=== PATIENT | female | born 1950 | race Asian ===

== ENCOUNTER 2020-06-21 12:31 | Inpatient (IN) | payer MEDICAID, SELFPAY ==
[2020-06-21] VITALS (12 sets, daily range): BP systolic 137–233
[~2020-06-21] VITALS: Ht 170.2 cm; Wt 61.7 kg
[2020-06-21] MEDS ORDERED: NITROPRUSSIDE SODIUM 50 MG in D5W 248 ML IV ONE (13:15)
[2020-06-21 13:21] LABS: BASOPHILS % (AUTO) 0.3 % (0.0-2.0); EOSINOPHILS % (AUTO) 0.5 % (0.0-4.0); HEMATOCRIT 35.2 % (36-48); HEMOGLOBIN 11.3 g/dL (12.0-16.0); LYMPHOCYTES # (AUTO) 0.8 K/uL (1.0-5.5); LYMPHOCYTES % (AUTO) 11.4 % (20.5-51.5); MEAN CORPUSCULAR HEMOGLOBIN 32 pg (27-31); MEAN CORPUSCULAR HGB CONC 32 % (32-36); MEAN CORPUSCULAR VOLUME 100 fL (79.0-98.0); MONOCYTES # (AUTO) 0.4 K/uL (0.0-1.0); MONOCYTES % (AUTO) 5.2 % (1.7-9.3); NEUTROPHILS # (AUTO) 5.9 K/uL (1.8-7.7); NEUTROPHILS % (AUTO) 82.6 % (40.0-70.0); PLATELET COUNT (AUTO) 87 K/uL (130-430); RED BLOOD CELL COUNT(AUTO) 3.51 MIL/uL (4.2-6.2); WHITE BLOOD COUNT (AUTO) 7.2 K/uL (4.8-10.8)
[2020-06-21] MEDS ORDERED: NITROPRUSSIDE SODIUM 25 MG/ML VIAL(NIPRIDE) IV ONE (13:30)
[2020-06-21 13:32] LABS: ANION GAP 7 (5-15); CALCIUM 7.6 mg/dL (8.4-11.0); CHLORIDE 103 mmol/L (98-107); GLUCOSE 239 mg/dL (70-99); SODIUM SERUM 138 mmol/L (136-145); UREA NITROGEN, BLOOD 82 mg/dL (8-21)
[2020-06-21 13:36] LABS: POTASSIUM 7.5 mmol/L (3.5-5.1)
[2020-06-21] MEDS ORDERED: INSULIN REGULAR, HUMAN 10 UNITS/0.1 ML INJ IVP ONE (13:45)
[2020-06-21] MEDS ORDERED: DOXYCYCLINE HYCLATE 100 MG in D5W 100 ML IV ONE (13:45)
[2020-06-21] MEDS ORDERED: cefTRIAXone 1 GM VIAL IM ONE (13:45)
[2020-06-21] MEDS ORDERED: DEXTROSE 50% JECT 50 ML DISP.SYRIN IVP ONE (13:45)
[2020-06-21] MEDS ORDERED: CALCIUM GLUCONATE 1 GM in NS 100 ML IV ONE (13:45)
[2020-06-21] MEDS ORDERED: DOXYCYCLINE HYCLATE 100 MG VIAL IV ONE (13:52)
[2020-06-21] MEDS ORDERED: CALCIUM GLUCONATE 1 GM/10 ML VIAL ONE (13:52)
[2020-06-21 13:57] LABS: ANION GAP 6 (5-15); CALCIUM 7.5 mg/dL (8.4-11.0); CHLORIDE 102 mmol/L (98-107); GLUCOSE 225 mg/dL (70-99); SODIUM SERUM 137 mmol/L (136-145); UREA NITROGEN, BLOOD 77 mg/dL (8-21)
[2020-06-21 14:08] LABS: ALANINE AMINOTRANSFERASE 61 U/L (12-78); ALBUMIN 3.6 g/dL (3.4-4.8); ASPARTATE AMINOTRANSFERASE 34 U/L (10-37)
[2020-06-21 14:15] LABS: CREATININE 11.32 mg/dL (0.55-1.30); POTASSIUM 7.6 mmol/L (3.5-5.1)
[2020-06-21 14:22] LABS: TOTAL BILIRUBIN < 0.1 mg/dL (0.0-1.0)
[2020-06-21] MEDS ORDERED: ALBUTEROL SULFATE 0.083% 2.5 MG/3 ML VIAL.NEB INH PRN (14:45)
[2020-06-21] MEDS ORDERED: IPRATROPIUM BROM 0.5 MG/2.5 ML VIAL.NEB (ATROVENT) INH PRN (14:45)
[2020-06-21] MEDS ORDERED: PIPERACILLIN/TAZO 3.375 GM in NS 50 ML IV ONE (14:45)
[2020-06-21 15:11] LABS: BILIRUBIN,URINE NEGATIVE (NEGATIVE); BLOOD, URINE 2+ (NEGATIVE); CLARITY/URINE CLEAR (CLEAR); COLOR,URINE YELLOW (YELLOW); GLUCOSE,URINE 1+ (NEGATIVE); KETONES,URINE NEGATIVE (NEGATIVE); LEUKOCYTE ESTERASE ,URINE NEGATIVE (NEGATIVE); NITRITE, URINE NEGATIVE (NEGATIVE); PROTEIN URINE 2+ (NEGATIVE); UROBILINOGEN,URINE 0.2 (0.2-1.0)
[2020-06-21 15:48] LABS: WBC,URINE 20-50 /HPF (0-3)
[2020-06-21 15:49] LABS: BACTERIA,URINE FEW /HPF (None Seen); MUCUS,URINE None Seen /LPF (None Seen)
[2020-06-21] MEDS ORDERED: PIPERACILLIN/TAZO 3.375/DEX-IS 50 ML IV ONE (18:30)
[2020-06-21] MEDS: ALBUTEROL SULFATE 0.083% 2.5 MG/3 ML VIAL.NEB INH SCH ×2 (19:54→23:45)
[2020-06-21] MEDS: IPRATROPIUM BROM 0.5 MG/2.5 ML VIAL.NEB (ATROVENT) INH SCH ×2 (19:54→23:45)
[2020-06-21] MEDS ORDERED: D5W 1,000 ML IV PRN (21:15)
[2020-06-21] MEDS ORDERED: GLUCOSE (DEXTROSE) ORAL GEL -Adults PO PRN (21:15)
[2020-06-21] MEDS ORDERED: hydrALAZINE HCL 20 MG/ML VIAL ONE (21:26)
[2020-06-21] MEDS ORDERED: hydrALAZINE HCL 20 MG/ML VIAL IVP PRN (21:30)
[2020-06-21] MEDS: DEXTROSE 50% JECT 50 ML DISP.SYRIN IVP PRN (22:25)
[2020-06-21] MEDS: hydrALAZINE HCL 20 MG/ML VIAL IVP PRN (22:25)
[2020-06-22] VITALS (23 sets, daily range): BP systolic 118–209
[2020-06-22] MEDS: PIPERACILLIN/TAZO 2.25G/DEX-IS 50 ML IV SCH ×5 (00:41→23:36)
[2020-06-22] MEDS ORDERED: hydrALAZINE HCL 20 MG/ML VIAL ONE (01:05)
[2020-06-22] MEDS: hydrALAZINE HCL 20 MG/ML VIAL IVP PRN (01:41)
[2020-06-22] MEDS: DEXTROSE 50% JECT 50 ML DISP.SYRIN IVP PRN (02:03)
[2020-06-22 05:19] LABS: HEMATOCRIT 31.9 % (36-48); HEMOGLOBIN 10.8 g/dL (12.0-16.0); MEAN CORPUSCULAR HGB CONC 34 % (32-36); PLATELET COUNT (AUTO) 81 K/uL (130-430)
[2020-06-22 05:25] LABS: BASOPHILS % (AUTO) 0.3 % (0.0-2.0); EOSINOPHILS # (AUTO) 0.1 K/uL (0.0-0.4); EOSINOPHILS % (AUTO) 1.1 % (0.0-4.0); LYMPHOCYTES # (AUTO) 0.7 K/uL (1.0-5.5); LYMPHOCYTES % (AUTO) 10.7 % (20.5-51.5); MEAN CORPUSCULAR HEMOGLOBIN 33 pg (27-31); MEAN CORPUSCULAR VOLUME 97 fL (79.0-98.0); MONOCYTES # (AUTO) 0.5 K/uL (0.0-1.0); MONOCYTES % (AUTO) 7.6 % (1.7-9.3); NEUTROPHILS # (AUTO) 5.2 K/uL (1.8-7.7); NEUTROPHILS % (AUTO) 80.3 % (40.0-70.0); RED BLOOD CELL COUNT(AUTO) 3.28 MIL/uL (4.2-6.2); RED CELL DISTRIBUTION WIDTH 13.8 % (9.0-15.0); WHITE BLOOD COUNT (AUTO) 6.5 K/uL (4.8-10.8)
[2020-06-22 05:40] LABS: ALANINE AMINOTRANSFERASE 41 U/L (12-78); ALBUMIN 3.1 g/dL (3.4-4.8); ANION GAP 9 (5-15); ASPARTATE AMINOTRANSFERASE 26 U/L (10-37); CALCIUM 7.8 mg/dL (8.4-11.0); CHLORIDE 100 mmol/L (98-107); GLUCOSE 109 mg/dL (70-99); POTASSIUM 4.7 mmol/L (3.5-5.1); SODIUM SERUM 140 mmol/L (136-145); TOTAL BILIRUBIN 0.6 mg/dL (0.0-1.0); UREA NITROGEN, BLOOD 39 mg/dL (8-21)
[2020-06-22] MEDS: IPRATROPIUM BROM 0.5 MG/2.5 ML VIAL.NEB (ATROVENT) INH SCH ×3 (07:00→15:00)
[2020-06-22] MEDS: ALBUTEROL SULFATE 0.083% 2.5 MG/3 ML VIAL.NEB INH SCH ×3 (07:00→15:00)
[2020-06-22] MEDS: INSULIN LISPRO SLIDING SCALE 100 UNITS/ML VIAL (humaLOG) SUBCUT PRN (20:53)
[2020-06-23] VITALS (17 sets, daily range): BP systolic 127–189
[2020-06-23] MEDS: PIPERACILLIN/TAZO 2.25G/DEX-IS 50 ML IV SCH ×4 (06:18→23:52)
[2020-06-23] MEDS: ALBUTEROL SULFATE 0.083% 2.5 MG/3 ML VIAL.NEB INH SCH ×3 (07:00→15:00)
[2020-06-23] MEDS: IPRATROPIUM BROM 0.5 MG/2.5 ML VIAL.NEB (ATROVENT) INH SCH ×3 (07:00→15:00)
[2020-06-23] MEDS: INSULIN LISPRO SLIDING SCALE 100 UNITS/ML VIAL (humaLOG) SUBCUT PRN (21:35)
[2020-06-24] VITALS: BP_SYST 134
[2020-06-24] MEDS: PIPERACILLIN/TAZO 2.25G/DEX-IS 50 ML IV SCH ×3 (06:14→17:29)
[2020-06-24] MEDS: ALBUTEROL SULFATE 0.083% 2.5 MG/3 ML VIAL.NEB INH SCH ×4 (07:00→19:32)
[2020-06-24] MEDS: IPRATROPIUM BROM 0.5 MG/2.5 ML VIAL.NEB (ATROVENT) INH SCH ×4 (07:00→19:32)
[2020-06-24 08:23] VITALS: BP_SYST 179
[2020-06-24 10:26] VITALS: BP_SYST 179
[2020-06-24] MEDS: INSULIN LISPRO SLIDING SCALE 100 UNITS/ML VIAL (humaLOG) SUBCUT PRN ×2 (11:34→21:00)
[2020-06-24 15:48] VITALS: BP_SYST 131
[2020-06-24 20:00] VITALS: BP_SYST 145
[2020-06-25] VITALS: BP_SYST 142
[2020-06-25] MEDS: PIPERACILLIN/TAZO 2.25G/DEX-IS 50 ML IV SCH ×3 (00:03→11:22)
[2020-06-25] MEDS: INSULIN LISPRO SLIDING SCALE 100 UNITS/ML VIAL (humaLOG) SUBCUT PRN ×2 (06:22→11:21)
[2020-06-25] MEDS: IPRATROPIUM BROM 0.5 MG/2.5 ML VIAL.NEB (ATROVENT) INH SCH ×3 (07:00→15:00)
[2020-06-25] MEDS: ALBUTEROL SULFATE 0.083% 2.5 MG/3 ML VIAL.NEB INH SCH ×3 (07:00→15:00)
[2020-06-25 07:45] VITALS: BP_SYST 154
[2020-06-25 11:45] VITALS: BP_SYST 154
[2020-06-25 12:00] VITALS: BP_SYST 169
[2020-06-25 14:20] VITALS: BP_SYST 112
[2020-06-25 15:00] VITALS: BP_SYST 122
== END 2020-06-25 15:55 | disposition home or self-care (01) | DRG 720 ==
LOC: SED 12:31 → SIC 14:22 → STU 06-23 18:32
PROVIDERS: ADMIT Internal Medicine Hospice and Palliative Medicine; ATTEND Internal Medicine Hospice and Palliative Medicine
PROC: 5A1D70Z Performance of Urinary Filtration, Intermittent, Less than 6 Hours Per Day (ICD-10-PCS; principal; 2020-06-21)
PROC: 5A09357 Assistance with Respiratory Ventilation, Less than 24 Consecutive Hours, Continuous Positive Airway Pressure (ICD-10-PCS; 2020-06-21)
PROC: 5A1D70Z Performance of Urinary Filtration, Intermittent, Less than 6 Hours Per Day (ICD-10-PCS; 2020-06-22)
PROC: 5A1D70Z Performance of Urinary Filtration, Intermittent, Less than 6 Hours Per Day (ICD-10-PCS; 2020-06-23)
PROC: 5A1D70Z Performance of Urinary Filtration, Intermittent, Less than 6 Hours Per Day (ICD-10-PCS; 2020-06-25)
DX: A41.9 Sepsis, unspecified organism (principal); J96.01 Acute respiratory failure with hypoxia; N18.6 End stage renal disease; I50.43 Acute on chronic combined systolic (congestive) and diastolic (congestive) heart failure; D69.6 Thrombocytopenia, unspecified; E87.5 Hyperkalemia; E11.22 Type 2 diabetes mellitus with diabetic chronic kidney disease; I16.0 Hypertensive urgency; D63.1 Anemia in chronic kidney disease; I13.2 Hypertensive heart and chronic kidney disease with heart failure and with stage 5 chronic kidney disease, or end stage renal disease; J18.9 Pneumonia, unspecified organism; Z20.822 Contact with and (suspected) exposure to COVID-19; Z99.2 Dependence on renal dialysis
CPT/HCPCS: 36415; 36600; 71045; 80048; 80053; 81000-TC; 82803-TC; 82962; 83605; 83880; 84484; 85025; 87040-TC; 87081; 87086; 93005; 94640; 94660; 94760; 96365; 96368; 96372; 96375; 99291; G0378; J0360; J0610; J0696; J1815; J2543; J3490; J7613; U0003